=== PATIENT | male | born 1950 | race Caucasian/White ===

== ENCOUNTER 2017-01-03 14:55 | Outpatient (CLI) | payer MEDICARE, OTHER | END 2017-01-03 14:56 | disposition home or self-care (01) | DX: I10 Essential (primary) hypertension (principal); E03.9 Hypothyroidism, unspecified; M54.5 Low back pain ==

== ENCOUNTER 2017-02-10 09:02 | Outpatient (CLI) | payer MEDICARE, OTHER | END 2017-02-10 09:03 | disposition home or self-care (01) | DX: E78.1 Pure hyperglyceridemia (principal) ==